=== PATIENT | female | born 1995 | race Caucasian/White ===

== ENCOUNTER 2019-04-30 10:25 | Emergency (ER) | payer MEDICAID ==
[2019-04-30] MEDS: AZITHROMYCIN 500 MG TAB PO (11:09)
[2019-04-30] MEDS: LIDOCAINE 1% (MDV) 20 ML INJ SC (11:09)
[2019-04-30] MEDS: CEFTRIAXONE 250 MG INJ IM (11:09)
[2019-04-30 11:30] LABS: ADD UMIC NO; UR ASCORBIC ACID NEGATIVE (NEGATIVE); UR BILIRUBIN (Dip) NEGATIVE (NEGATIVE); UR BLOOD (Dip) NEGATIVE (NEGATIVE); UR CLARITY CLEAR (CLEAR); UR COLOR STRAW (YELLOW); UR GLUCOSE (Dip) NEGATIVE (NEGATIVE); UR KETONES (Dip) NEGATIVE (NEGATIVE); UR LEUKOCYTE ESTERASE (Dip) NEGATIVE Leu/ul (NEGATIVE); UR NITRITE (Dip) NEGATIVE (NEGATIVE); UR SPECIFIC GRAVITY (Dip) 1.016 (1.003-1.030); UR TOTAL PROTEIN (Dip) NEGATIVE (NEGATIVE); UR UROBILINOGEN (Dip) NEGATIVE (NEGATIVE)
== END 2019-04-30 11:55 | disposition home or self-care (01) ==
LOC: FTE 10:25
DX: R30.0 Dysuria (principal); Z11.3 Encounter for screening for infections with a predominantly sexual mode of transmission; Z87.891 Personal history of nicotine dependence
CPT/HCPCS: 81003; 81025; 87086; 87591; 96372; 99284-25

== ENCOUNTER 2019-08-09 00:15 | Emergency (ER) | payer SELFPAY, MEDICAID | END 2019-08-09 01:58 | disposition left against medical advice (07) | LOC: FTE 00:15 | DX: Z53.21 Procedure and treatment not carried out due to patient leaving prior to being seen by health care provider (principal) ==